=== PATIENT | female | born 1935 | race Caucasian/White ===

== ENCOUNTER → 2018-03-22 | Day surgery (SDC) | payer OTHER ==
[2018-03-20 13:12] LABS: BASOPHILS % 0.3 % (0.0-1.0); EOSINOPHILS # (AUTO) 0.1 (0.0-0.4); EOSINOPHILS % 1.3 % (0.0-6.0); HEMATOCRIT 40.1 % (34.2-44.1); HEMOGLOBIN 12.7 g/dL (12.0-16.0); LYMPHOCYTES # (AUTO) 2.1 (1.0-3.2); LYMPHOCYTES % 23.2 % (18.0-39.1); MEAN CORPUSCULAR HEMOGLOBIN 28.8 pg (28-32); MEAN CORPUSCULAR HGB CONC 31.7 g/dL (31-35); MEAN CORPUSCULAR VOLUME 90.9 fL (81-99); MONOCYTES # (AUTO) 0.9 (0.2-0.8); MONOCYTES % 9.8 % (4.4-11.3); NEUTROPHILS # (AUTO) 5.8 (2.1-6.9); PLATELET COUNT 276 x10e3/uL (140-360); RED BLOOD COUNT 4.41 x10e6/uL (3.6-5.1); RED CELL DISTRIBUTION WIDTH 13.9 % (11.7-14.4)
[2018-03-20 13:30] LABS: ANION GAP 15.2 mmol/L (8-16); CALCIUM 10.7 mg/dL (8.4-10.2); CREATININE, SERUM 0.94 mg/dL (0.57-1.11); POTASSIUM 5.2 mmol/L (3.5-5.1)
--- NOTE | 2018-03-20 13:53 | Diagnostic Imaging Report ---
PROCEDURE: Frontal and lateral views of the chest. COMPARISON: None. INDICATIONS: PRE OPERATIVE CHEST X-RAY FOR UROLOGY FINDINGS: Lines/tubes: None. Lungs: The lungs are well inflate. Bilateral lower lung field hazy opacities. Bilateral mid to lower lung linear atelectasis/scaring. Pleura: There is no pneumothorax. Possible trace bilateral pleural effusions. Heart and mediastinum: The heart and the mediastinum are normal. Aorta is mildly calcified and tortuous. Bones: No acute bony abnormality. IMPRESSION: Bilateral lower lung field hazy opacities, representing atelectasis and/or pneumonia. Possible trace bilateral pleural effusions. Dictated by: Dieter Moss M.D. on 03/20/2018 at 13:54 Electronically approved by: Dieter Moss M.D. on 03/20/2018 at 13:54
[~2018-03-22] MED LIST: ALLERGY4 MG PO; ASPIR 8181 MG PO; BIOTIN2500 MCG PO; BREO INH; CEFTRIAXONE SOD 1 GM VIAL ONE; CO Q-10100 MG PO; DEXAMETHASONE SOD PHOS INJ 4 MG/ML VIAL ONE; DILTIAZEM HCL60 MG PO; FENTANYL CITRATE/PF 100MCG/2 ML INJ ONE; FISH OIL 1,0001 EAC2 PO; FLONASE; GABAPENTIN400 MG PO; GLUCOSAMINE HC500 MG PO; GLYBURIDE5 MG PO; IPRAT-ALBUT 0.5-3 ML NEB; LIDOCAINE HCL 2% LOCAL INJ 5 ML SDV VIAL INJ ONE; LOSARTAN POTASS25 MG PO; LOVASTATIN10 MG PO; METFORMIN HCL500 MG PO; MONTELUKAST SOD10 MG PO; MULTIVITAMINS1 EAC7 PO; ONDANSETRON HCL INJ 2 MG/ML VIAL ONE; PROPOFOL IV EMULSION 10 MG/ML 20 ML VIAL ONE; SEVOFLURANE INHAL SOLN 250 ML PEN BTL ONE; VENTOLIN HFA18 GM INH; [UNRECOGNIZED DRUG - OTHER] INH
--- OUTSIDE RECORDS SUMMARY | 2018-03-22 05:20 | XMS REPORT ---
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 Allergies, Adverse Reactions, Alerts This patient has no known allergies or adverse reactions. Medications This patient has no known medications. Results Test Description Test Time Test Comments Text Results Atomic Results Result Comments Carcinoembryonic antigen (CEA) measurement 2016-12-05 18:04:00 Carcinoembryonic antigen (CEA) measurement (test mzdv=6247-7) 2.8 ng/mL 0- 3.0 This CEA test was done by the chemiluminescent methodology. Values obtained with different assay methods cannot be used interchangeably. Comprehensive metabolic [id number] 17:52:00* Test Item Value Reference Range Comments Sodium level (test vgkg=TNE8477) 140 meq/L 135-145 4.9 Chloride measurement (test mqoq=HIJ3965) 99 meq/L 101-111 Bicarbonate (test code=CO2) 27 meq/L 21-31 Glucose measurement (test nskv=HIH7785) 128 mg/dL 65-120 ADA Clinical Practice Recommendation: <100 mg/dl=Normal Fasting Glucose BUN Bld-mCnc (test jqtp=2336-8) 17 mg/dL 6-20 Creatinine measurement (test watz=XES9583) 0.74 mg/dL 0.44-1.00 The creatinine method used has been calibrated to be traceable to Isotope dilution Mass Spectrometry (IDMS). For more information: www.nkdep.nih.gov Estimated glomerular filtration rate (GFR) determination (test ixlm=69202-0) 75 mL =/>90 FOR CHRONIC KIDNEY DISEASE: GFR STAGE DESCRIPTION =/>90 STAGE 1 NORMAL--OR-- MINIMAL KIDNEY DAMAGE WITH NORMAL GFR 60-89 STAGE 2 MILD DECREASE IN GFR 30-59 STAGE 3 MODERATE DECREASE IN GFR 15-29 STAGE 4 SEVERE DECREASE IN GFR <15 STAGE 5 KIDNEY FAILURE The Glomerular Filtration Rate (GFR) has been calculated using the IDMS-Traceable MDRD Study Equation. Aspartate aminotransferase (AST) measurement (test whbf=KPN6290) 27 [iU]/L 10 -42 ALT/SGPT (test code=SGPT) 21 [iU]/L 10-60 Alkaline Phosphatase (test code=ALK) 78 [iU]/L 42-121 Bilirubin total (test nbsf=VGK6189) 0.4 mg/dL 0.3-1.2 Calcium Level (test code=CA) 10.1 mg/dL 8.5-10.5 Serum total protein measurement (test febm=1266-3) 7.8 g/dL 6.0-8.3 Albumin measurement (test hvbz=GPA8671) 4.1 g/dL 3.2-5.5 Globulin (test code=GLOB) 3.7 g/dL 2.3-3.5 Albumin/Globulin Ratio (test code=A/G) 1.1 1.1-1.8 CHEST 2 VIEWS [place] [address] Patient Name: LONA SIMS MR #: [id number] : 1935 Age/Sex: 82/F Req #: [id number] Adm Physician: Ordered by: ANA WATSON MD Report #: [id number] Location: OR Room/Bed: Procedure: [id number] DX/ CHEST 2 VIEWS Exam Date: 03/20/18 Exam Time: 1310 REPORT STATUS: Signed PROCEDURE: Frontal and lateral views of the chest. COMPARISON: None. INDICATIONS: PRE OPERATIVE CHEST X-RAY FOR UROLOGY FINDINGS: Lines/tubes: None. Lungs: The lungs are well inflate. Bilateral lower lung field hazy opacities. Bilateral mid to lower lung linear atelectasis/scaring. Pleura: There is no pneumothorax. Possible trace bilateral pleural effusions. Heart and mediastinum: The heart and the mediastinum are normal. Aorta is mildly calcified and tortuous. Bones: No acute bony abnormality. IMPRESSION: Bilateral lower lung field hazy opacities, representing atelectasis and/or pneumonia. Possible trace bilateral pleural effusions. Dictated by: Dieter Garcia M.D. on 03/20/2018 at 13:54 Electronically approved by: Dieter Garcia M.D. on 03/20/2018 at 13:54 Dictated By: DIETER GARCIA MD [id number] Transcribed By: BRUNO on 03/20/18 1354 COPY TO: ANA WATSON MD
--- OUTSIDE RECORDS SUMMARY | 2018-03-22 05:20 | XMS REPORT | Clinical Summary ---
Author Author [facility] Organization [facility] Address Unknown Phone Unavailable Care Team Providers Care Dry Pan Feeder Name Role Phone Ginette Pfeiffer MD PCP Allergies Active Allergy Reactions Severity Noted Date Comments Zolpidem 12/26/2016 Sulfa (Sulfonamide 12/26/2016 Antibiotics) Current Medications Prescription Sig. Disp. Refills Start End Date Status Date metFORMIN (GLUCOPHAGE) 11/06/20 Active 1,000 mg tablet 16 lovastatin (MEVACOR) 10 11/06/20 Active MG tablet 16 ketoconazole (NIZORAL) 2 10/15/20 Active % shampoo 16 VENTOLIN HFA 90 11/20/19 Active mcg/actuation inhaler 17 ADVAIR DISKUS 250-50 11/27/19 Active mcg/dose DISKUS 17 TRUE METRIX GLUCOSE TEST 12/27/19 Active STRIP strip test strips 17 cefdinir (OMNICEF) 300 MG 11/10/20 Active capsule 16 omega 0-uec-ykf-fish oil Take by mouth. Active (FISH OIL) 1,000 mg (120 mg-180 mg) capsule aspirin (ECOTRIN) 81 MG Take 81 mg by mouth Active enteric coated tablet daily. coenzyme Q10 200 mg Take 200 mg by mouth Active capsule daily. glucosamine sulfate Take by mouth. Active (GLUCOSAMINE) 500 mg tablet biotin 1 mg tablet Take 1,000 mcg by mouth 3 Active (three) times a day. diltiazem CD (CardIZEM 02/24/20 Active CD) 120 MG 24 hr capsule 17 BREO ELLIPTA 100-25 02/17/20 Active mcg/dose blister with 17 device powder for inhalation gabapentin (NEURONTIN) 2 (two) times a day. 03/06/20 Active 300 mg capsule 17 furosemide (LASIX) 20 mg Take 1 tablet (20 mg 10 tablet 0 05/12/20 05/12/20 Active tablet total) by mouth daily. 17 18 multivitamin with Take 1 tablet by mouth 30 tablet 11 05/28/2005/28 Active minerals daily. 17 18 tabletIndications: Malignant neoplasm of lung, unspecified laterality, unspecified part of lung fluticasone (FLONASE) 50 2 sprays (100 mcg total) 15.8 mL 0 02/26/20 Active mcg/actuation nasal spray by Each Nare route daily. 18 traMADol (ULTRAM) 50 mg Take 1 tablet (50 mg 50 tablet 1 02/20/20 tabletIndications: Lung total) by mouth every 6 17 17 mass (six) hours as needed for moderate pain for up to 30 days. ondansetron (ZOFRAN, Take 1 tablet (8 mg 30 tablet 1 02/20/2008/31 HYDROCHLORIDE,) 8 MG total) by mouth every 8 17 17 tabletIndications: Lung (eight) hours as needed mass for nausea or vomiting for up to 30 days. promethazine (PHENERGAN) Take 1 tablet (25 mg 30 tablet 1 02/20/20 03/21/20 25 MG tabletIndications: total) by mouth every 6 17 17 Lung mass (six) hours as needed for nausea or vomiting for up to 30 days. levoFLOXacin (LEVAQUIN) Take 1 tablet (250 mg 3 tablet 0 05/03/20 250 MG tablet total) by mouth daily for 17 17 3 days. biotin 1,000 mcg Chew 5,000 mcg once for 1 30 tablet 6 05/28/20 tablet,chewableIndication dose. 17 17 s: Malignant neoplasm of lung, unspecified laterality, unspecified part of lung Hospital, Clinic, or Ordered Dose Route Frequency Start End Date Status Other Facility Date Administered Medication magnesium sulfate 2 g in 2 g IV once 03/23/20 03/23/20 Ended sodium chloride 0.9 % 50 17 17 mL IVPBIndications: Hypomagnesemia Active Problems Problem Noted Date Coronary artery disease due to calcified coronary lesion 2017 Type 2 diabetes mellitus without complication, without long-term current use of insulin Other emphysema 2017 History of lobectomy of lung 2017 History of bowel resection 2017 History of recent fall 2017 Dizziness [address] posterior chest wall on left side 2017 Hydronephrosis 07/30/2017 Lung cancer 01/15/2017 Resolved Problems Problem Noted Date Resolved Date H/O pyelonephritis 07/30/2017 2017 Mass of lower lobe of right lung 02/01/2017 07/30/2017 Encounters Date Type Specialty Care Team Description 02/25/2018 Office Visit Otolaryngology Ivan Webster MD Sensorineural hearing loss (SNHL) of both ears (Primary Dx); Dysfunction of right eustachian tube; Mixed conductive and sensorineural hearing loss of both ears 01/29/2018 Lab Lab Myron Haddad, Malignant neoplasm of MD lung, unspecified laterality, unspecified part of lung 01/29/2018 Office Visit Oncology Myron Haddad, Malignant neoplasm of MD lung, unspecified laterality, unspecified part of lung (Primary Dx) 2017 Lab Lab Myron Haddad, Malignant neoplasm of MD lung, unspecified laterality, unspecified part of lung 2017 Office Visit Oncology Myron Haddad, Malignant neoplasm of MD lower lobe of right lung Yeni Cunningham MD (Primary Dx); History of recent fall; Dizziness; Rales 1/4 way up posterior chest wall on left side 07/31/2017 Orders Only Oncology Henrry Horner MA Malignant neoplasm of lung, unspecified laterality, unspecified part of lung (Primary Dx) 07/30/2017 Office Visit Oncology Myron Haddad Malignant neoplasm of MD lung, unspecified Yeni Cunningham MD laterality, unspecified part of lung (Primary Dx); H/O pyelonephritis; Hydronephrosis, unspecified hydronephrosis type 07/26/2017 Hospital Radiology Myron Haddad, Malignant neoplasm of Encounter MD lung, unspecified laterality, unspecified part of lung 06/05/2017 Orders Only Oncology Kenzie Franklin MA Malignant neoplasm of lung, unspecified laterality, unspecified part of lung (Primary Dx) 05/28/2017 Office Visit Oncology Myron Haddad, Malignant neoplasm of MD lung, unspecified Yeni Cunningham MD laterality, unspecified part of lung (Primary Dx) 05/28/2017 Refill Oncology Jonathan Mclean, GARCIA 05/14/2017 Telephone Oncology Yeni Cunningham MD 05/12/2017 Orders Only Oncology Pj Velasquez MD 05/03/2017 Orders Only Oncology Kenzie Franklin MA Malignant neoplasm of lung, unspecified laterality, unspecified part of lung (Primary Dx) 05/02/2017 Office Visit Oncology Myron Haddad, Malignant neoplasm of MD lower lobe of right lung Yeni Cunningham MD (Primary Dx) 05/02/2017 Infusion Oncology Myron Haddad, Malignant neoplasm of MD lower lobe of right lung (Primary Dx) 04/30/2017 Orders Only Oncology Myron Haddad MD 04/23/2017 Orders Only Oncology Myron Haddad MD 04/17/2017 Hospital Radiology Myron Haddad, Malignant neoplasm of Encounter MD lung, unspecified laterality, unspecified part of lung 04/13/2017 Telephone Oncology Yeni Cunningham MD 04/11/2017 Office Visit Oncology Myron Haddad, Malignant neoplasm of MD lower lobe of right lung Yeni Cunningham MD (Primary Dx) 04/11/2017 Infusion Oncology Myron Haddad, Malignant neoplasm of MD lower lobe of right lung Ashlyn Agudelo RN (Primary Dx) 04/11/2017 Orders Only Oncology Neil Phillips MD Malignant neoplasm of lower lobe of right lung 04/11/2017 Orders Only Oncology Henrry Horner MA Malignant neoplasm of lung, unspecified laterality, unspecified part of lung (Primary Dx) 04/11/2017 Orders Only Oncology Michelle Erickson MD Malignant neoplasm of lower lobe of right lung 04/11/2017 Orders Only Pharmacy Farzad Dawkins, PharmCordell 04/11/2017 Orders Only Oncology Neil Phillips MD 03/28/2017 Telephone Oncology Yeni Cunningham MD 03/28/2017 Orders Only Oncology Yeni Cunningham MD 03/26/2017 Telephone Oncology Yeni Cunningham MD 03/23/2017 Infusion Oncology Myron Haddad, Malignant neoplasm of MD lower lobe of right lung (Primary Dx); Hypomagnesemia after 03/21/2017 Family History Relation Name Status Comments Brother 2 Brothers has cancer (unknown cancer) Father Eye Cancer Social History Tobacco Use Types Packs/Day Years Used Date Former Smoker Cigarettes 0.5 60 Smokeless Tobacco: Never Quit: Used 10/25/2016 Tobacco Cessation: Counseling Given: Yes Alcohol Use Drinks/Week oz/Week Comments No Sex Assigned at Date Recorded Not on file Last Filed Vital Signs Vital Sign Reading Time Taken Blood Pressure 144/77 02/25/2018 9:24 AM CDT Pulse 137 02/25/2018 9:24 AM CDT Temperature 36.3 C (97.3 F) 05/28/2017 1:22 PM CDT Respiratory Rate 16 2017 1:25 PM [employer] [place] Oxygen Saturation 96% 05/02/2017 8:54 AM CDT Inhaled Oxygen - - Concentration Weight 79.8 kg (176 lb) 02/25/2018 9:24 AM CDT Height 170.2 cm (5' 7") 02/25/2018 9:24 AM CDT Body Mass Index 27.57 02/25/2018 9:24 AM CDT Plan of Treatment Date Type Specialty Care Team Description 05/01/2018 Office Visit Oncology Etheler, Myron Osorio MD [address] [facility] [address] [place] [address] Yeni Mann MD [address] [address] [place] [address] Health Maintenance Due Date Last Done Comments FOOT EXAM 1944 OPHTHALMOLOGY EXAM 1944 SHINGRIX VACCINE (#1) 1984 ZOSTER VACCINE 1994 PNEUMOCOCCAL 1999 POLYSACCHARIDE VACCINE AGE 65 AND OVER PNEUMOCOCCAL-13 1999 INFLUENZA VACCINE 06/12/2018 Implants Implanted Type Area Thread Winder Device Expiration Model / Identifier Date Serial / Lot Kit Selnt Plrl Air Leak 4ml Strl Surgical N/A: N/A [employer] [id number] / Progel - [id number] Implants; / Implanted: 02/01/2017 (Quantity not Expanders; on file) Extenders; Surgical Wires Procedures Procedure Name Priority Date/Time Associated Diagnosis Comments COMPREHENSIVE HEARING Routine 02/25/2018 Sensorineural hearing TEST 10:33 AM CDT loss (SNHL) of both ears after 03/21/2017 Results * Comprehensive hearing test (02/25/2018 10:33 AM) * Estimated GFR (01/29/2018 3:39 PM) Only the most recent of 6 results within the time period is included. Component Value Ref Range GFR Non Af Amer 68 mL/min/1.73 m2 GFR Af Amer 83 mL/min/1.73 m2 Comment: Chronic kidney disease: <60 mL/min/1.73m2 Kidney failure: <15 mL/min/1.73m2 The estimated GFR is calculated from the IDMS-traceable Modification of Diet in Renal Disease Equation. The accuracy of the calculation is poor when the creatinine is normal. Calculated values >90 mL/min/1.73m2 are not reported. This equation has not been validated in children (<18 years), women, the elderly (>70 years), or ethnic groups other than Caucasians and Americans. Specimen Performing Laboratory Plasma specimen [facility] DEPARTMENT OF PATHOLOGY AND GENOMIC MEDICINE [address] [place] [phone] * CBC with platelet and differential (01/29/2018 3:39 PM) Only the most recent of 4 results within the time period is included. Component Value Ref Range WBC 8.49 4.50 - 11.00 k/uL RBC 4.32 4.20 - 5.50 m/uL HGB 12.7 12.0 - 16.0 g/dL HCT 39.6 37.0 - 47.0 % MCV 91.7 82.0 - 100.0 fL MCH 29.4 27.0 - 34.0 pg MCHC 32.1 31.0 - 37.0 g/dL RDW - SD 48.0 37.0 - 55.0 fL MPV 9.2 8.8 - 13.2 fL Platelet count 325 150 - 400 k/uL Nucleated RBC 0.00 /100 WBC Neutrophils 67.4 39.0 - 69.0 % Lymphocytes 23.1 (L) 25.0 - 45.0 % Monocytes 8.1 0.0 - 10.0 % Eosinophils 0.7 0.0 - 5.0 % Basophils 0.2 0.0 - 1.0 % Immature granulocytes 0.5Comment: "Immature granulocytes" 0.0 - 1.0 % (promyelocytes, myelocytes, metamyelocytes) Specimen Performing Laboratory Blood [facility] DEPARTMENT OF PATHOLOGY AND GENOMIC MEDICINE [address] [place] [phone] * Carcinoembryonic antigen (CEA) (01/29/2018 3:39 PM) Component Value Ref Range CEA 2.5 0.0 - 3.8 ng/mL Comment: Reference range for heavy smokers: 0.0 - 5.5 ng/mL The STANISLAW Victor M 8000 CEA immunoassay was used. Results obtained with different assay methods or kits should not be used interchangeably and may be different. Specimen Performing Laboratory Serum [facility] DEPARTMENT OF PATHOLOGY AND [facility]ICINE [address] [place] [phone] * Comprehensive metabolic panel (01/29/2018 3:39 PM) Only the most recent of 5 results within the time period is included. Component Value Ref Range Sodium 137 135 - 148 mEq/L Potassium 4.5 3.5 - 5.0 mEq/L Chloride 95 (L) 98 - 112 mEq/L CO2 27 24 - 31 mEq/L Anion gap 15 7 - 15 mEq/L Comment: Starting from February , anion gap calculation no longer incorporates potassium. Please note the change. BUN 17 8 - 23 mg/dL Creatinine 0.8 0.5 - 0.9 mg/dL Glucose 132 (H) 65 - 99 mg/dL Calcium 9.8 8.8 - 10.2 mg/dL Protein 7.3 6.3 - 8.3 g/dL Comment: 4.6-7.0 g/dL 1 week 4.4-7.6 g/dL 7 months-1year 5.1-7.3 g/dL 1-2 years 5.6-7.5 g/dL >3 years 6.0-8.0 g/dL 18-150 6.3-8.3 g/dL Albumin 3.2 (L) 3.5 - 5.0 g/dL A/G ratio 0.8 0.7 - 3.8 Alkaline phosphatase 80 35 - 104 U/L AST 23 10 - 35 U/L ALT 21 5 - 50 U/L Total bilirubin <0.2 0.0 - 1.2 mg/dL Specimen Performing Laboratory Plasma specimen [facility] DEPARTMENT OF PATHOLOGY AND [facility] [address] [place] [phone] * CT Chest W Contrast Abdomen W Wo Contrast Pelvis W Contrast (07/26/2017 11:35 AM) Specimen Performing Laboratory [facility] [address] [place] [address] CHEST W CONTRAST ABDOMEN W WO CONTRAST PELVIS W CONTRAST CLINICAL INDICATION:C34.90 Malignant neoplasm of unspecified part of unspecified bronchus or lung, LUNG CANCERUNSPECIFIED TECHNIQUE: Multidetector CT examination of the chest, abdomen, and pelvis was performed before and then following the intravenous administration of iodinated contrast with automated exposure control and/or iterative reconstruction techniques to radiation dose. COMPARISON:04/17/2017 FINDINGS: CHEST: *Stable operative changes status post right lower lobe resection. No mass or developing consolidation is identified. Stable qffh-bu-lowpnsbb centrilobular emphysema. No pleural effusion. *There is no pathological lymphadenopathy in the chest. An 8 mm right suprahilar lymph node is present without significant change. *The heart is moderately enlarged without effusion. Prominent atherosclerosis of the aorta is present with borderline ectasia at 3.6 cm. *Pulmonary arteries are enlarged centrally consistent with pulmonary arterial hypertension likely on the basis of patient's emphysema. *Thyroid, trachea and esophagus are unremarkable without change. ABDOMEN: *There are no findings of metastatic disease in the abdomen. *The enhanced liver, spleen, pancreas and adrenal glands are stable. There is a stable partially calcified mass with central low density in the right adrenal gland likely related to remote hemorrhage or infection without suspicious enhancement. *There is severe right greater than left hydronephrosis with marked dilatation of the renal pelves with transition at the ureteropelvic junction consistent with chronic UPJ obstruction. There is mild urothelial enhancement on the left with heterogeneous left renal cortical enhancement consistent with pyelonephritis; please correlate. No abscess is visualized. Nonobstructive 5-7 mm right lower pole renal calculi are present. *There is moderate stool through the colon without focal wall thickening or inflammatory changes. Operative changes noted in distal small bowel. *There are nonspecific reactive 9 mm short axis left retroperitoneal lymph nodes most prominent at the level of the left renal pelvis potentially reactive given changes of left kidney. No enlarged by criteria lymph nodes are identified. *Moderate atherosclerosis of the aorta and branch vessels is present. 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 PELVIS: *Urinary bladder is incompletely distended. There is no mass or free fluid in the pelvis. No adenopathy. BONES: *Mild degenerative changes noted in the spine. No lytic or blastic osseous lesion. Moderate right osteophytic changes of the hip, mild on the left. IMPRESSION: 1. Stable operative changes in the right lower lobe. No evidence of residual recurrent malignancy in the chest. No findings of metastatic disease. 2. Severe bilateral hydronephrosis probably due to chronic UPJ obstruction with abnormal urothelial and left renal cortical enhancement consistent with left- sided pyelonephritis; please correlate. 3. Other incidental findings as described. Please see report. Thank you for allowing us to participate in the care of your patient. This report was confirmed received by the referring physician's office through the radiology resource line. [facility]-[id number] Procedure Note [facility], Radiology Results Incoming - 07/26/2017 3:[address] CHEST W CONTRAST ABDOMEN W WO CONTRAST PELVIS W CONTRAST CLINICAL INDICATION: C34.90 Malignant neoplasm of unspecified part of unspecified bronchus or lung, LUNG CANCER UNSPECIFIED TECHNIQUE: Multidetector CT examination of the chest, abdomen, and pelvis was performed before and then following the intravenous administration of iodinated contrast with automated exposure control and/or iterative reconstruction techniques to radiation dose. COMPARISON: 04/17/2017 FINDINGS: CHEST: * Stable operative changes status post right lower lobe resection. No mass or developing consolidation is identified. Stable tdnk-mt-kaczaorn centrilobular emphysema. No pleural effusion. * There is no pathological lymphadenopathy in the chest. An 8 mm right suprahilar lymph node is present without significant change. * The heart is moderately enlarged without effusion. Prominent atherosclerosis of the aorta is present with borderline ectasia at 3.6 cm. * Pulmonary arteries are enlarged centrally consistent with pulmonary arterial hypertension likely on the basis of patient's emphysema. * Thyroid, trachea and esophagus are unremarkable without change. ABDOMEN: * There are no findings of metastatic disease in the abdomen. * The enhanced liver, spleen, pancreas and adrenal glands are stable. There is a stable partially calcified mass with central low density in the right adrenal gland likely related to remote hemorrhage or infection without suspicious enhancement. * There is severe right greater than left hydronephrosis with marked dilatation of the renal pelves with transition at the ureteropelvic junction consistent with chronic UPJ obstruction. There is mild urothelial enhancement on the left with heterogeneous left renal cortical enhancement consistent with pyelonephritis; please correlate. No abscess is visualized. Nonobstructive 5-7 mm right lower pole renal calculi are present. * There is moderate stool through the colon without focal wall thickening or inflammatory changes. Operative changes noted in distal small bowel. * There are nonspecific reactive 9 mm short axis left retroperitoneal lymph nodes most prominent at the level of the left renal pelvis potentially reactive given changes of left kidney. No enlarged by criteria lymph nodes are identified. * Moderate atherosclerosis of the aorta and branch vessels is present. 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 PELVIS: * Urinary bladder is incompletely distended. There is no mass or free fluid in the pelvis. No adenopathy. BONES: * Mild degenerative changes noted in the spine. No lytic or blastic osseous lesion. Moderate right osteophytic changes of the hip, mild on the left. IMPRESSION: 1. Stable operative changes in the right lower lobe. No evidence of residual recurrent malignancy in the chest. No findings of metastatic disease. 2. Severe bilateral hydronephrosis probably due to chronic UPJ obstruction with abnormal urothelial and left renal cortical enhancement consistent with left-sided pyelonephritis; please correlate. 3. Other incidental findings as described. Please see report. Thank you for allowing us to participate in the care of your patient. This report was confirmed received by the referring physician's office through the radiology resource line. [facility]-[id number] * Creatinine level (07/26/2017 10:43 AM) Component Value Ref Range Creatinine 0.6Comment: Testing performed on the ISTAT 0.5 - 0.9 mg/dL instrument by GARCIA Bright [id number] Specimen Performing Laboratory Plasma specimen [facility] DEPARTMENT OF PATHOLOGY AND GENOMIC MEDICINE [address] [place] [phone] * Urinalysis, automated with microscopy (05/02/2017 3:00 PM) Component Value Ref Range Color, UA Yellow Appearance, UA Cloudy Specific gravity, UA 1.015 1.001 - 1.035 pH, UA 6.0 5.0 - 8.5 Protein, UA 1+ (A) Negative Glucose, UA 1+ (A) Negative Ketones, UA Negative Negative Bilirubin, UA Negative Negative Blood, UA Moderate (A) Negative Nitrite, UA Negative Negative Urobilinogen, UA <2.0 <2.0 Leukocyte esterase, UA Large (A) Negative WBC, UA >200 (H) 0 - 4 /HPF RBC, UA SEE COMMENT 0 - 2 /HPF Comment: Footnote--------- UNABLE TO EUMERATE. FIELD OBSCURED BY WBC'S Bacteria, UA Moderate (A) None seen Yeast, UA None seen Yeast with pseudohyphae, None seen UA Specimen Performing Laboratory Urine [facility] DEPARTMENT OF PATHOLOGY AND GENOMIC MEDICINE [address] [place] [phone] * Magnesium level (05/02/2017 9:41 AM) Only the most recent of 3 results within the time period is included. Component Value Ref Range Magnesium 1.0 (LL) 1.6 - 2.4 mg/dL Specimen Performing Laboratory Plasma specimen [facility] DEPARTMENT OF PATHOLOGY AND GENOMIC MEDICINE [address] [place] [phone] * CT Chest W Contrast (04/17/2017 2:13 PM) Specimen Performing Laboratory [facility] [address] [place] [phone] Narrative EXAMINATION: CT CHEST W CONTRAST CLINICAL HISTORY: C34.90 Malignant neoplasm of unspecified part of unspecified bronchus or lung, restaging TECHNIQUE: Multiple axial images of the chest were obtained following intravenous administration of iodinated contrast. Sagittal and coronal computerized reformatted images were also obtained. CT imaging was performed with iterative reconstruction techniques and/or automated exposure control to reduce radiation dose. COMPARISON: To a previous examination from 01/15/2017 IMPRESSION: 1.Partial lung resection is noted, and the previously noted mass in the right lower lobe is now absent. Scarring in this area is present. No other parenchymal abnormality is appreciated. 2.A few small mediastinal lymph nodes are unchanged and continued follow-up is warranted. 3.The major pulmonary arteries are prominent and some degree of pulmonary hypertension cannot be excluded. 4.The thoracic aorta is tortuous, and extensive mural thrombus is noted involving the lower thoracic aorta just above the hiatus. The aorta at this level measures 3.3 cm. 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 The abdominal aorta below this level is not visualized. 5.Calcifications involving the right adrenal gland are unchanged. 6.No bony destructive lesions are appreciated. [id number] Procedure Note Interface, Radiology Results Incoming - 04/17/2017 2:35 PM CDT EXAMINATION: CT CHEST W CONTRAST CLINICAL HISTORY: C34.90 Malignant neoplasm of unspecified part of unspecified bronchus or lung, restaging TECHNIQUE: Multiple axial images of the chest were obtained following intravenous administration of iodinated contrast. Sagittal and coronal computerized reformatted images were also obtained. CT imaging was performed with iterative reconstruction techniques and/or automated exposure control to reduce radiation dose. COMPARISON: To a previous examination from 01/15/2017 IMPRESSION: 1. Partial lung resection is noted, and the previously noted mass in the right lower lobe is now absent. Scarring in this area is present. No other parenchymal abnormality is appreciated. 2. A few small mediastinal lymph nodes are unchanged and continued follow-up is warranted. 3. The major pulmonary arteries are prominent and some degree of pulmonary hypertension cannot be excluded. 4. The thoracic aorta is tortuous, and extensive mural thrombus is noted involving the lower thoracic aorta just above the hiatus. The aorta at this level measures 3.3 cm. 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 The abdominal aorta below this level is not visualized. 5. Calcifications involving the right adrenal gland are unchanged. 6. No bony destructive lesions are appreciated. [id number] * Manual differential (04/11/2017 8:39 AM) Component Value Ref Range Manual differential PERFORMED Neutrophils 85.0 (H) 39.0 - 69.0 % Lymphocytes 9.0 (L) 25.0 - 45.0 % Monocytes 4.0 0.0 - 10.0 % Eosinophils 0.0 0.0 - 5.0 % Basophils 2.0 (H) 0.0 - 1.0 % Metamyelocytes 0 % Promyelocytes 0 % Platelet slide review Nae slt incr Specimen Performing Laboratory [facility] DEPARTMENT OF PATHOLOGY AND GENOMIC MEDICINE [address] [place] [address] after 03/21/2017 Insurance Payer Benefit Subscriber ID Type Phone Address Plan / Group [employer] xxxxxxxxx O [facility]
--- NOTE | 2018-03-22 06:15 | Diagnostic Imaging Report ---
ABDOMEN-1VIEW (KUB) Clinical history: Preoperative right kidney Technique: AP view abdomen Comparison: None Findings: Moderate overlying stool burden limits sensitivity for detecting renal stones. Cholecystectomy clips. Two 6 mm calcific densities project medial to the expected right lower kidney. Possible smaller stones versus artifact. Degenerative changes of the spine and hips. Impression: Two 6 mm calcific densities or stones project medial to the expected right lower kidney; correlate with prior cross sectional imaging. Signed by: Dr Elisha Dinero MD on 03/22/2018 6:12 AM
--- NOTE | 2018-03-22 08:38 | Operative Report ---
DATE OF PROCEDURE: March 22, 2018 PREOPERATIVE DIAGNOSIS: Right kidney stone. POSTOPERATIVE DIAGNOSIS: Right kidney stone. PROCEDURES: 1. Staged shockwave lithotripsy, right side. 2. Supervision of fluoroscopy. ANESTHESIA: General. ESTIMATED BLOOD LOSS: Minimal. COMPLICATIONS: None. INDICATIONS: Ms. Garcia is a very pleasant 82-year-old female with a symptomatic right-sided kidney stone. She and I had a long discussion regarding the alternatives, risks and benefits including doing nothing, shockwave lithotripsy, ureteroscopy, percutaneous surgery, open surgery. She voiced understanding of the options, alternatives, risks, and benefits, and elected to proceed. PROCEDURE IN DETAIL: After informed consent was obtained, time out was taken, the patient was taken to the operative suite. She was placed supine on the operating table. She underwent general anesthesia by the anesthesia services. The stone was localized in the X, Y, and Z planes. A total of 3000 shocks at a maximum power setting of 6 delivered to the stone. The patient tolerated the procedure well and was transported to the recovery room in excellent condition. SUPERVISION OF FLUOROSCOPY: I was present throughout the entire procedure and I supervised the use of fluoroscopy for treatment report. Job#: [id number]
== END | disposition home or self-care (01) ==
LOC: OR 05:18
PROVIDERS: ATTEND Urology
DX: N13.2 Hydronephrosis with renal and ureteral calculous obstruction (principal); N39.0 Urinary tract infection, site not specified; R31.29 Other microscopic hematuria; Z87.442 Personal history of urinary calculi; Z01.810 Encounter for preprocedural cardiovascular examination; Z01.812 Encounter for preprocedural laboratory examination; Z01.818 Encounter for other preprocedural examination; J44.9 Chronic obstructive pulmonary disease, unspecified; E11.9 Type 2 diabetes mellitus without complications; Z79.84 Long term (current) use of oral hypoglycemic drugs; I10 Essential (primary) hypertension; K58.9 Irritable bowel syndrome, unspecified; Z79.82 Long term (current) use of aspirin; Z85.118 Personal history of other malignant neoplasm of bronchus and lung; Z99.81 Dependence on supplemental oxygen
CPT/HCPCS: 36415 ×2; 50590; 71046; 74018; 80048; 82948; 84132; 85025; 93005; J0696; J1100; J2001; J2405

== ENCOUNTER → 2018-05-02 | Outpatient (CLI) | payer OTHER ==
[~2018-05-02] MED LIST changes: -CEFTRIAXONE SOD 1 GM VIAL ONE; -DEXAMETHASONE SOD PHOS INJ 4 MG/ML VIAL ONE; -FENTANYL CITRATE/PF 100MCG/2 ML INJ ONE; -LIDOCAINE HCL 2% LOCAL INJ 5 ML SDV VIAL INJ ONE; -ONDANSETRON HCL INJ 2 MG/ML VIAL ONE; -PROPOFOL IV EMULSION 10 MG/ML 20 ML VIAL ONE; -SEVOFLURANE INHAL SOLN 250 ML PEN BTL ONE
--- NOTE | 2018-05-02 13:51 | Diagnostic Imaging Report ---
PROCEDURE:ABDOMEN-1VIEW (KUB) TECHNIQUE:Supine AP abdomen totaling 2 radiographs INDICATION:Calculus of kidney COMPARISON:[facility], DX, ABDOMEN-1VIEW (KUB), 03/22/2018, 5:56. FINDINGS: See conclusion. CONCLUSION: 1. No definitive calcifications over the kidneys or ureters. 2. Normal bowel gas pattern. 3. Multilevel degenerative disc disease. Dictated by: Bin Jo M.D. on 05/02/2018 at 13:54 Electronically approved by: Bin Jo M.D. on 05/02/2018 at 13:54
== END ==
LOC: RAD 12:42
PROVIDERS: ATTEND Urology
DX: N20.0 Calculus of kidney (principal)
CPT/HCPCS: 74018

== ENCOUNTER → 2018-09-12 | Outpatient (CLI) | payer OTHER ==
--- NOTE | 2018-09-12 13:30 | Diagnostic Imaging Report ---
ABDOMEN-1VIEW (KUB) Clinical history: History of kidney stones. Technique: AP view abdomen Comparison: 03/22/2018 Findings: Moderate overlying stool burden limits sensitivity for detecting renal stones. Cholecystectomy clips. Small calcification over the right iliac bone could be in the soft tissue. Small curvilinear calcification in the right upper abdomen could be vascular. No definite urinary tract calcifications are seen. Degenerative changes of the spine and hips. Impression: No definite urinary tract calcifications are seen. Signed by: Dr. Juan Handy M.D. on 09/12/2018 1:27 PM
== END ==
LOC: RAD 12:23
PROVIDERS: ATTEND Urology
DX: N20.0 Calculus of kidney (principal)
CPT/HCPCS: 74018

== ENCOUNTER → 2018-12-10 | Outpatient (CLI) | payer OTHER ==
--- NOTE | 2018-12-10 12:42 | Diagnostic Imaging Report ---
KUB - 2 views Clinical history: Renal calculus. Comparison: KUB 09/12/2018. Findings: Overlying bowel gas limits sensitivity for detecting renal stones. Cholecystectomy clips. Calcifications measuring up to 6 mm project medial to the expected right lower kidney. No calcifications overlying the ureters or left kidney. Degenerative changes of the spine and hips without acute osseous abnormality. Impression: Calcifications measuring up to 6 mm project medial to the right lower pole kidney as before, and may be in the soft tissues. No specific evidence of urinary stone. Signed by: Dr. Cindy Beaulieu MD on 12/10/2018 12:39 PM
== END ==
LOC: RAD 11:41
PROVIDERS: ATTEND Urology
DX: N20.0 Calculus of kidney (principal)
CPT/HCPCS: 74018